=== PATIENT | female | born 1995 | race Caucasian/White ===

== ENCOUNTER 2017-06-22 08:49 | Emergency (ER) | payer OTHER ==
[~2017-06-22] VITALS: Ht 170.2 cm; Wt 104.5 kg
[~2017-06-22 08:49] MED LIST: BUSP10 PO; LEVO75TA3 PO; METF750T PO
[2017-06-22 08:52] VITALS: BP 154/51; PULSE 95; RESP 14; TEMP 97.9; O2SAT 100
[2017-06-22] MEDS ORDERED: [UNRECOGNIZED DRUG - OTHER] (09:15)
[2017-06-22] MEDS ORDERED: LEVO200T4 PO (09:15)
[2017-06-22] MEDS ORDERED: DIAZEPAM 5 MG TAB PO ONE (09:30)
[2017-06-22] MEDS ORDERED: IBUPROFEN 600 MG TAB PO ONE (09:30)
[2017-06-22] MEDS ORDERED: ONDANSETRON ODT 4 MG TAB PO ONE (09:30)
[2017-06-22] MEDS ORDERED: MECLIZINE HCL 25 MG TAB PO ONE (09:30)
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
[2017-06-22] MEDS ORDERED: IBUP-232 PO (10:17)
[2017-06-22] MEDS ORDERED: MECL-62 PO (10:17)
== END 2017-06-22 10:28 | disposition home or self-care (01) ==
LOC: NEPD 08:49
DX: M79.1 Myalgia (principal); R42 Dizziness and giddiness; E07.9 Disorder of thyroid, unspecified
CPT/HCPCS: 99283